=== PATIENT | female | born 1975 | race African-American/Black ===

== ENCOUNTER 2023-12-11 11:46 | Emergency (ER) | payer MEDICAID ==
[~2023-12-11] VITALS: Ht 157.5 cm; Wt 70.3 kg
[2023-12-11 11:48] VITALS: O2SAT 100
[2023-12-11 11:52] VITALS: BP 137/95; PULSE 74; RESP 16; TEMP 98.3; O2SAT 100
[2023-12-11 13:14] LABS: BASOPHILS % 0.6 % (0.0-2.0); EOSINOPHILS % 2.1 % (0.0-5.0); HEMATOCRIT. 39.3 % (36.0-48.0); HEMOGLOBIN. 12.8 g/dL (12.0-16.0); MEAN CORPUSCULAR HGB CONC 32.7 g/dL (31.0-37.0); MEAN CORPUSCULAR VOLUME 82.4 fL (81.0-99.0); MEAN PLATELET VOLUME 7.7 fl (7.4-10.4); NEUTROPHILS % 70.3 % (40.0-76.0); PLATELET 269 x1000/uL (130-400); RED BLOOD CELL COUNT 4.77 mill/uL (4.2-5.4); RED CELL DISTRIBUTION WIDTH 14.4 % (11.6-14.6); WHITE BLOOD COUNT 7.7 x1000/uL (4.5-11.0)
[2023-12-11 13:33] LABS: CARBON DIOXIDE 26 mEq/L (21-32); CHLORIDE 107 mEq/L (98-107); POTASSIUM 3.9 mEq/L (3.5-5.1); SODIUM 138 mEq/L (136-145)
[2023-12-11 13:34] LABS: CALCIUM 9.8 mg/dL (8.7-10.4)
[2023-12-11 13:39] LABS: CREATININE 0.9 mg/dL (0.6-1.0); GLUCOSE 113 mg/dL (70-105); UREA NITROGEN BLOOD 13 mg/dL (9-23)
[2023-12-11 13:41] LABS: TROPONIN I HIGH SENSITIVITY < 4 ng/L (3.0-34)
== END 2023-12-11 14:29 | disposition left against medical advice (07) ==
LOC: ER 11:46
DX: R51.9 Headache, unspecified (principal); R07.89 Other chest pain; R11.2 Nausea with vomiting, unspecified; Z53.21 Procedure and treatment not carried out due to patient leaving prior to being seen by health care provider
CPT/HCPCS: 36415; 71045; 80048; 84484; 85025; 93005